=== PATIENT | female | born 1945 | race Caucasian/White ===

== ENCOUNTER 2018-02-25 06:43 | Emergency (ER) | payer MEDICARE, SELFPAY ==
[2018-02-25] VITALS (50 sets, daily range): BP systolic 126–157; BP diastolic 58–97; PULSE 54–68; RESP 11–20; TEMP 36.9; O2SAT 95–99
--- NOTE | 2018-02-25 06:53 | DI.CT_ITS ---
SYMPTOMS/DIAGNOSIS: RIGHT FRONTAL AND NASAL TRAUMA S/P FALL CT OF THE FACIAL BONES: A noncontrast enhanced examination was performed. There is a comminuted, mildly depressed fracture of the anterior portion of the right nasal bone and nasal septum. Also, there appears to be a nondisplaced fracture of the anterior nasal spine. The bony orbits are intact. No abnormality involving the intraorbital soft tissues or globes is seen. There is mild mucoperiosteal thickening involving the ethmoid sinus. The maxillary sinuses are clear. The sphenoid sinus is normal. There is no evidence of a mastoid effusion. SUMMARY: Nasal bone fractures are demonstrated as described above. C-SPINE CT: A noncontrast enhanced examination was carried out according to the usual protocol. There is no evidence of an acute fracture or subluxation. Degenerative changes are noted at C4-5 and C5-C6, where there is disc space narrowing, discogenic sclerosis and hypertrophic spurring. Also, there is disc- osteophyte complex prominence at these levels. There is no evidence of significant foraminal compromise. Degenerative changes involving the facet joints are also identified. The posterior elements appear intact. The neural canal at its narrowest point at the C4-5 level measures up to 12 mm in AP diameter. There are degenerative changes involving the articulation of C1 and C2 at the level of the odontoid. There is no evidence of a fracture. SUMMARY: No evidence of a fracture or subluxation. Degenerative changes as described above.
--- NOTE | 2018-02-25 06:53 | DI.RAD_ITS ---
SYMPTOMS/DIAGNOSIS: SYNCOPE, FALL PA AND LATERAL CHEST: The heart is normal in size. The lungs are clear. The mediastinal structures and pleura appear intact. SUMMARY: Normal chest. No evidence of acute cardiopulmonary disease.
--- NOTE | 2018-02-25 06:58 | W.ED.GENAD ---
Discharge Plan Disposition Patient Disposition: HOME Discharge Details Chief Complaint: HeadInjury Clinical Impression: Syncope, Leg cramp Reason For Visit: DAPHNE Primary Care Provider: Kerri Matson ED Provider: Catarino Reyes Home Meds and New Rx's Prescriptions: Continue metformin 500 MG tablet 500 mg PO BID RF: 0 aspirin [Aspir-81] 81 MG tablet,delayed release (DR/EC) 81 mg PO DAILY RF: 0 flaxseed oil 1,000 MG capsule 1,000 mg PO DAILY RF: 0 ursodiol 500 MG tablet 500 mg PO TID RF: 0 omega-3 fatty acids-fish oil [Fish Oil] 1 EACH capsule 1 ea PO DAILY RF: 0 cholecalciferol (vitamin D3) 1,000 UNIT tablet 1,000 unit PO BID RF: 0 ascorbic acid (vitamin C) [Vitamin C] 500 mg Tablet 500 mg PO DAILY RF: 0 fenofibrate 40 mg Tablet 40 mg PO DAILY RF: 0 Discharge Instructions Instructions: Syncope (ED) Additional Instructions: Please drink plenty of fluids to stay hydrated. Rest over the next few days. No exertional activities until cleared by your primary care physician. Keep zio patch monitor intact and return as directed by respiratory therapist. Please contact your primary care physician to arrange follow-up. Call today. Return to the ER for any worsening or new concerning symptoms. Referrals: Kerri Matsno [Primary Care Provider] - Discharge Data Discharge Date/Time-TO BE ENTERED AT DEPARTURE: 02/25/18 12:45 Medical Decision Making <Jv Matthew MD - Last Filed: 02/25/18 07:06> 72-year-old female diabetic presents from home following a fall that was a result of a painful leg cramps. She struck her right forehead and face and has resultant blunt trauma. She arrives to emergency department with stable vital signs, complaining of mild persistent leg cramping. Differential diagnosis includes dehydration, electrolyte abnormality, consideration of closed head injury or nasal fracture. Patient placed on teletypesetter monitor, referred for EKG, laboratory testing, chest x-ray, CT scan of the head and cervical spine. ECG Data Attestation: I personally reviewed and interpreted this ECG (s) as follows: Interpretation: Normal sinus rhythm, first-degree AV block, no ST segment elevation <Catarino Reyes MD - Last Filed: 03/05/18 22:12> 8:00 -- Cared signed out by Dr. Matthew with plan to follow on labs and CT imaging. ECG was reviewed and interpreted by me: Sinus rhythm 61 bpm with first-degree AV block with IA interval of 222. Labs reviewed and nondiagnostic. She does have some leuko-urea but specimen contaminated with epithelial cells. Patient notes no urinary symptoms. Will send urine culture but I suspect specimen is contaminated. We will not initiate antibiotics at this point. I instructed the patient to follow-up with her primary care physician regarding this should she develop any symptoms. Initial troponin is negative CT of the head interpreted by radiology: Negative CT cervical spine interpreted by radiology: Negative CT of the face interpreted by radiology: nasal fracture. I discussed these results with the patient. Patient reassessed and she has remained stable here in the emergency department. No arrhythmias. She received 1 L of crystalloid. I suspect this syncopal episode was a orthostatic process given she had been laying in bed stood and walked across the room and then experienced syncope. The cramp in her leg is completely resolved. She has no chest pain or shortness of breath. Plan at this time is to place a cardiac 0 patch monitor for expedited outpatient continuation of workup. I encouraged her to follow-up with her primary care physician I did call today to schedule an appointment. Advised her to return to the emergency department immediately should she have any worsening or new concerning symptoms. Patient in agreement with plan, feeling well and requesting discharge. Spoke with [employer] covering for PCP (Fercho) and I discussed case including presentation, ED course and diagnostic workup as well as treatment plan. She will help arrange for close outpatient follow-up. HPI <Jv Matthew MD - Last Filed: 02/25/18 07:06> General Mode of arrival: EMS. Date/Time Provider Initiated Documentation: 02/25/18 07:04. Limitations to Documentation: no limitations. Information obtained by: patient and EMS. History of Present Illness 72 year old F presents to the emergency department with the chief complaint of Fall, facial trauma, described as moderate, Quality is described as aching, and is localized to the head and face. Patient reports no radiation. Patient started experiencing this hour(s) and it has been constant. No relieving factors improve symptom(s), No exacerbating factors reported . Patient notes denies confusion and chest pain. HPI Narrative: Fall: 72-year-old female who has type 2 diabetes. She states she went to bed feeling normal. She was awoken by painful left thigh leg cramp. She got out of bed, was holding onto her dresser with intense pain and while trying to walk off the cramp fell to the ground and struck her head. She believes she had a brief loss of consciousness and had to lie on the ground for some minutes. EMS was called to the home. Patient had some bleeding from her nose which ceased by the time of arrival. She arrives to the emergency department improved, complaining of dull, achy, right frontal and nasal discomfort. She has had some ongoing left leg cramping. Morning she denies palpitations, chest pain, shortness of breath. Related Data Home Medications Medication Instructions Recorded Confirmed aspirin [Aspir-81] 81 mg PO DAILY tab-cap 09/14/13 02/25/18 flaxseed oil 1,000 mg PO DAILY 09/14/13 02/25/18 metformin 500 mg PO BID 09/14/13 02/25/18 omega-3 fatty acids-fish oil [Fish 1 ea PO DAILY 09/14/13 02/25/18 Oil] ursodiol 500 mg PO TID 09/14/13 02/25/18 cholecalciferol (vitamin D3) 1,000 unit PO BID 04/05/14 02/25/18 ascorbic acid (vitamin C) [Vitamin 500 mg PO DAILY 02/25/18 02/25/18 C] fenofibrate 40 mg PO DAILY 02/25/18 02/25/18 Allergies Allergy/AdvReac Type Severity Reaction Status Date / Time rosuvastatin calcium Allergy MUSCLE Unverified 02/25/18 09:04 [From Crestor] PAIN GI UPSET simvastatin Allergy HIVES Unverified 02/25/18 09:04 General Stated Complaint: Trauma GUERITA: 2 Review of Systems <Jv Matthew MD - Last Filed: 02/25/18 07:06> Review of Systems 8 systems reviewed and otherwise neg Exam <Jv Matthew MD - Last Filed: 02/25/18 07:06> Narrative Exam Narrative: GEN: awake, alert, oriented 3. Pleasant, well groomed, interactive. HEAD: Right frontal ecchymosis and swelling. Swelling of the nose. The nasal bridge is stable. No midface instability. Sensation of the face is normal. ENT: Mucous membranes moist, oropharynx unremarkable, External ear exam unremarkable EYES: PERRL, EOMI NECK: Full ROM, no TORI, no menigismus, no midline tenderness CHEST/RESP: Nontender, clear to auscultation bilateral, no wheeze/rhonchi/rales CARDIOVASCULAR: RRR, no murmur, rub karen. 2+ Rad pulse bilateral ABDOMEN: Soft, nontender, no mass. +Bowel sounds EXT: Full ROM, no edema, no rash Neuro: Grossly normal neurologic exam, conversant, interactive. Psych: Speech fluent, thoughts congruent, affect normal Course <Jv Matthew MD - Last Filed: 02/25/18 07:06> Vital Signs Temperature 36.9 C 02/25/18 06:45 Pulse 65 02/25/18 06:45 Respiratory Rate 18 02/25/18 06:45 Blood Pressure 157/97 H 02/25/18 06:45 Pulse Oximetry 97 02/25/18 06:45 Temperature 36.9 C 02/25/18 06:45 Temperature Source Temporal Artery Scan 02/25/18 06:45 Pulse 65 02/25/18 06:45 Respiratory Rate 18 02/25/18 06:45 Blood Pressure 157/97 H 02/25/18 06:45 Blood Pressure Position Sitting 02/25/18 06:45 Pulse Oximetry 97 02/25/18 06:45 Oxygen Delivery Method Room Air 02/25/18 06:45 Oxygen Flow Rate 0 02/25/18 06:45 Pain Level 2 02/25/18 06:45
[2018-02-25] MEDS: Normal Saline 1,000 ML 500 ML IV (07:11)
[2018-02-25 07:16] LABS: Abs Immature Grans 0.02 k/cumm (0.0-0.09); Absolute Basophil Count 0.05 k/cumm (0.0-0.2); Absolute Eosinophil Count 0.13 k/cumm (0.0-0.7); Absolute Lymphocyte Count 1.51 k/cumm (1.2-3.4); Absolute Monocyte Count 0.42 k/cumm (0.11-0.7); Absolute Neutrophil Count 2.55 k/cumm (1.2-6.7); Basophils % 1.1; Eosinophils % 2.8; HGB 13.2 g/dL (12.0-15.5); Immature Grans % 0.4; Lymphocytes % 32.3; Mean Corpuscular Hemoglobin 32.1 pg (27.0-33.0); Mean Corpuscular Volume 97.3 fL (80-95); Mean Platelet Volume 10.5 fL (8.0-11.0); Neutrophils % 54.4; Platelet Count 239 x1000/uL (130-400); RBC 4.11 m/cumm (4.00-5.20); RBC Distribution Width 13.1 % (11.7-14.6); White Blood Cell Count 4.68 k/cumm (4.4-10.8)
[2018-02-25 07:42] LABS: ALT 19 U/L (12-78); AST 22 U/L (15-37); Albumin 3.7 g/dL (3.4-5.0); Alkaline Phosphatase 66 U/L (46-116); Anion Gap 8.2 mmol/L (3-11); BUN 24 mg/dL (7-18); Bilirubin, Total 0.4 mg/dL (0.2-1.0); CO2 28.8 mmol/L (21.0-32.0); Calcium 9.4 mg/dL (8.5-10.1); Chloride 103 mmol/L (98-107); Glucose 156 mg/dL (70-100); Magnesium 2.1 mg/dL (1.8-2.4); Potassium 4.2 mmol/L (3.5-5.1); Sodium 140 mmol/L (136-145)
[2018-02-25 07:45] LABS: Troponin I < 0.02 ng/mL (0.00-0.06)
--- NOTE | 2018-02-25 08:44 | PDOC.ERCMPRO ---
Care Management Progress Note 02/25-Ariadna is a 72 year old female that fell this morning at home hitting her face. She states that her dog barked until he woke up her . Ariadna lives with her in [facility] in [place]. Robert, daughter Nano, and son in law Cresencio are here with patient. Ariadna is normally independent at home, no services, no assisted devices, still drives. Ariadna states she takes care of her Robert at home. Plan is for Ariadna to be discharged home today with no services. Nano and Elroy live in [facility], about 20 minutes from [place] and they state that they will be with Ariadna and Robert and help her at home. Dr. Reyes has taken over care of patient. Plan is to discharge patient home with no services, family support.
--- NOTE | 2018-02-25 08:48 | CMPROGNOTE_ITS ---
Care Management Progress Note 02/25-Ariadna is a 72 year old female that fell this morning at home hitting her face. She states that her dog barked until he woke up her . Ariadna lives with her in [facility] in [place]. Robert, daughter Nano , and son in law Cresencio are here with patient. Ariadna is normally independent at home, no services, no assisted devices, still drives. Ariadna states she takes care of her Robert at home. Plan is for Ariadna to be discharged home today with no services. Nano and Elroy live in [facility], about 20 minutes from [place] and they state that they will be with Ariadna and Robert and help her at home. Dr. Reyes has taken over care of patient. Plan is to discharge patient home with no services, family support.
[2018-02-25 10:46] LABS: Bilirubin Negative (Negative); Blood Negative (Negative); Clarity Clear; Glucose Negative (Negative); Ketones Negative (Negative); Leukocyte Esterase Large (Negative); Nitrite Negative (Negative); Specific Gravity 1.015 (1.005-1.025); Urobilinogen 0.2 EU/dL (Up TO 0.2)
[2018-02-25 10:57] LABS: Epithelial Cells Moderate HPF (Negative); RBC Negative (0-2); WBC 20-50 HPF (0-5)
[2018-02-25 10:58] LABS: Bacteria Moderate HPF (Negative); C & S Indicated? Yes; Casts Negative LPF (Negative); Crystals Negative HPF (Negative); Mucus Negative (Negative)
[2018-02-25 12:28] LABS: Troponin I < 0.02 ng/mL (0.00-0.06)
== END 2018-02-25 12:45 | disposition home or self-care (01) ==
PROVIDERS: Emergency Medicine; Emergency Provider Student in an Organized Health Care Education/Training Program; PCP Nurse Practitioner; Referring Provider Nurse Practitioner
DX: S02.2XXA Fracture of nasal bones, initial encounter for closed fracture (principal); R42 Dizziness and giddiness; R25.2 Cramp and spasm; W01.0XXA Fall on same level from slipping, tripping and stumbling without subsequent striking against object, initial encounter
CPT/HCPCS: 0298T; 36415; 80053; 93005; 93225; 96361; 96365; 96366; 99285; 70486; 71046; 72125; 81003; 81015; 83735; 84484; 85025; 87086; 93010; J3475

== ENCOUNTER 2018-03-02 12:55 | Outpatient (REF) | payer MEDICARE, SELFPAY ==
--- NOTE | 2018-03-16 18:45 | ZIOP_ITS ---
ZIO PATCH REPORT DATE OF READING: March 16, 2018 STUDY INDICATION: Syncope. REQUESTING PROVIDER: Kerri Matson N.P. FINDINGS: The patient was monitored for 13 days and 20 hours. The predominant underlying rhythm was sinus rhythm. Average heart rate in sinus rhythm 65 beats per minute, range 45-110 beats per minute. There was rare ectopy. There were 36 atrial runs, average heart rate 112 beats per minute, range 63-176 beats per minute. T he longest episode lasted 11 beats with an average heart rate of 96 beats per minute. There was a single 6-beat ventricular run with an average heart rate of 130 beats per minute. There were no pauses greater than 3 seconds. There was no high-degree heart block. There were no patient events. FINAL INTERPRETATION: Bursts of atrial tachycardia, asymptomatic.
== END 2018-03-02 13:15 ==
LOC: NCHCN 12:55
PROVIDERS: PCP Nurse Practitioner; Visit Provider Nurse Practitioner
DX: N39.0 Urinary tract infection, site not specified (principal)
CPT/HCPCS: 87077; 87086; 87186

== ENCOUNTER 2018-03-16 16:21 | Outpatient (CLI) | payer MEDICARE, SELFPAY | END 2018-03-16 16:41 | PROVIDERS: PCP Nurse Practitioner; Referring Provider Student in an Organized Health Care Education/Training Program; Visit Provider Student in an Organized Health Care Education/Training Program | DX: R55 Syncope and collapse (principal); I47.1 Supraventricular tachycardia | CPT/HCPCS: 0298T ==

== ENCOUNTER 2018-04-01 01:27 | Outpatient (CLI) | payer MEDICARE, SELFPAY ==
--- NOTE | 2018-04-01 08:17 | DI.US_ITS ---
SYMPTOM/DIAGNOSIS: H/O PBC, EVAL STRUCTURE - LIVER, K74.3 ULTRASOUND ABDOMEN: There are no prior comparison exams. The liver is normal in size and overall echogenicity, however there is heterogeneous echo texture. There is some increased echogenicity of the portal triads. There is thickening of the wall of the common bile duct and the lumen is poorly visualized. No focal liver mass is identified. The gallbladder has a normal appearance. The kidneys, spleen and aorta are unremarkable. There is no evidence of ascites. IMPRESSION: Heterogeneous liver echo texture. Echogenic portal triads and significant thickening of the wall of the common bile duct may be seen with primary biliary cholangitis.
== END 2018-04-01 01:47 ==
PROVIDERS: PCP Nurse Practitioner; Visit Provider Hospitalist
DX: K74.3 Primary biliary cirrhosis (principal); K82.8 Other specified diseases of gallbladder
CPT/HCPCS: 76700

== ENCOUNTER 2018-11-22 10:43 | Outpatient (REF) | payer MEDICARE, SELFPAY ==
[2018-11-22 15:57] LABS: COMMENT (LAB VIEW ONLY) 33.57 mg/dL; Microalb ug/mg Crea 8.3 ug/mg Cr
== END 2018-11-22 11:03 ==
LOC: NCHCN 10:43
PROVIDERS: PCP Nurse Practitioner; Visit Provider Nurse Practitioner
DX: E11.9 Type 2 diabetes mellitus without complications (principal)
CPT/HCPCS: 82043; 82570

== ENCOUNTER 2019-07-06 02:42 | Outpatient (CLI) | payer MEDICARE, SELFPAY ==
--- NOTE | 2019-07-06 15:23 | DI.MAMMO_ITS ---
EXAM: MAMMO SCREENING CLINICAL HISTORY: SCREENING, Z12.39 TECHNIQUE: Mammograms were interpreted according to the usual protocol including computer analysis w [employer] CAD system, tomosynthesis and C-view imaging. COMPARISON: 2012 through 2014 FINDINGS: The breasts are composed of mainly fatty density , Breast Density category A. No suspicious masses or suspicious microcalcifications are seen. Vascular calcifications are inciden tally noted. No skin thickening or abnormal axillary lymph nodes are seen. There has been no significant change from prior exams. IMPRESSION: Bi rads category 1, negative. Yearly screening mammography is recommended. Breast density category A, fatty density.
== END 2019-07-06 03:02 ==
PROVIDERS: PCP Nurse Practitioner; Visit Provider Nurse Practitioner
DX: Z12.31 Encounter for screening mammogram for malignant neoplasm of breast (principal)
CPT/HCPCS: 77063; 77067

== ENCOUNTER 2020-01-17 02:17 | Outpatient (CLI) | payer MEDICARE, SELFPAY ==
[2020-01-18 14:26] LABS: COVID-19 RT-PCR Result NEGATIVE (Negative)
== END 2020-01-17 02:37 ==
PROVIDERS: PCP Nurse Practitioner; Visit Provider Surgery
DX: Z11.59 Encounter for screening for other viral diseases (principal); Z01.818 Encounter for other preprocedural examination
CPT/HCPCS: U0003

== ENCOUNTER 2020-06-25 11:22 | Outpatient (REF) | payer MEDICARE, SELFPAY ==
[2020-06-25 16:20] LABS: ALT 22 U/L (14-59); AST 19 U/L (15-37); Albumin 3.9 g/dL (3.4-5.0); Alkaline Phosphatase 62 U/L (46-116); Anion Gap 6.9 mmol/L (3-11); BUN 20 mg/dL (7-18); Bilirubin, Total 0.4 mg/dL (0.2-1.0); CO2 25.1 mmol/L (21.0-32.0); CREATININE 1.1 mg/dL (0.55-1.02); Calcium 9.8 mg/dL (8.5-10.1); Calculated LDL 107 mg/dL (<100); Chloride 106 mmol/L (98-107); Cholesterol 184 mg/dL (<200); Estimated GFR 48.42 (mL/min/1.73m2); Glucose 146 mg/dL (74-106); HDL Cholesterol 48 mg/dL (40-60); Hemoglobin A1C 7.9 % (<5.7); Potassium 4.5 mmol/L (3.5-5.1); Sodium 138 mmol/L (136-145); Total Protein 6.9 g/dL (6.4-8.2); Triglyceride 146 mg/dL (<150)
[2020-06-25 16:47] LABS: Microalb ug/mg Crea 4.3 ug/mg Cr
== END 2020-06-25 11:23 | disposition home or self-care (01) ==
LOC: NCHCN 11:22
PROVIDERS: PCP Nurse Practitioner; Visit Provider Nurse Practitioner
DX: E11.9 Type 2 diabetes mellitus without complications (principal); E78.5 Hyperlipidemia, unspecified
CPT/HCPCS: 80053; 80061; 82043; 82570; 83036

== ENCOUNTER 2021-06-24 13:46 | Outpatient (REF) | payer MEDICARE, SELFPAY ==
--- OUTSIDE RECORDS SUMMARY | 2021-06-24 13:51 | XMS_ITS ---
:1945 Author Care Team Providers Name Role Phone DR. MEREDITH SILVER Primary Care Provider [phone] DR. MEREDITH SILVER Referring Provider [phone] Allergies Code Code System Name Reaction Severity Status Onset 007189 RxNorm Crestor ? ? Active ? 59787 RxNorm Simvastatin ? ? Active ? Medications Name Status Start Date Stop Date ? ? Aspir-81 mg tablet,delayed release Active ? Not available Take 1 tablet every day by oral route. Blood Glucose Test strips Active ? Not av ailable FREESTYLE TEST IN VITRO STRIP TEST ONCE DAILY cefpodoxime 100 mg tablet Active ? Not av ailable Take 1 tablet twice a day by oral route. Diabetes Lancets Active ? Not available Freestyle 28G Lancets-test daily fenofibrate 160 mg tablet Active ? Not av ailable Take 1 tablet every day by oral route. Fish Oil Active ? Not available 1200mg BID flaxseed oil Active ? Not available 1200 mg BID metformin 500 mg tablet Active ? Not avai lable Take 1 tablet every day by oral route. timolol 0.5 % eye drops Active ? Not avai lable INSTILL 1 DROP INTO AFFECTED EYE(S) BY OPHTHALMIC ROUTE 2 TIMES PER DAY ursodiol 500 mg tablet Active ? Not avail able Take 1 tablet 3 times a day by oral route. Vitamin D Active ? Not available 1000 1 daily Notes: Vit C 1000 mg once a day by mouth Problems Name Status Onset Date Source ? 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 Diabetes Mellitus Active 06/09/2019 ? Hyperlipidemia Active 06/09/2019 ? 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 Osteopenia Active 06/09/2019 ? Screening for Malignant Neoplasm of Breast Active 06/09 ? Procedures Date Name Performed by ? ? Colonoscopy Information not avai lable Notes: 2013 Notes: tubal ligation - 1970 Results Lab Results Date Name Specimen Result Interpretation Description Value Range Status Address ? 01/25/2020 Hepatic P Normal Alt 21 14-59 Final [place] Function U/L U/L [facility] Panel, Serum Labo ratory & Pathology: [address] [place] [address] ? ? P Normal Ast 23 15-37 Final [place] U/L U/L [facility] Laboratory & Pathology: [address] [place] [address] ? ? P Normal Alkp 50 50-130 [facility] Laboratory & Pathology: [address] [place] [address] ? ? P Normal Tbil 0.5 <=1.2 [facility]/dL [facility] Laboratory & Pathology: [address] [place] [address] ? ? P Normal Dbil 0.17 0.00-0. [facility] mg/dL Laboratory & Pathology: [address] [place] [address] ? ? P Normal Tp 7.6 6.4-8.2 [facility] g/dL [facility] Laboratory & Pathology: [address] [place] [address] ? ? P Normal Alb 4.1 3.4-5.0 [facility] g/dL [facility] Laboratory & Pathology: [address] [place] [address] ? ? P ? Glob 3.50 ? Final [place] mg/dL [facility] Laboratory & Pathology: [address] [place] [address] 01/17/2020 SARS CoV 2 ? No ? ? ? No [facility] RNA observation [facility] (COVID-19), recorded. [place] [facility], client solutions specialist-PCR, Hosp ital: [address] [facility] [place], Specimen [place] Past Encounters None recorded. Social History Tobacco Smoking Status Never Smoker Vaccine List Vaccine Type Hep A, adult 05/26/2008 06/12/2009 10/03/2009 Hep B, adult 05/26/2008 06/12/2009 10/03/2009 pneumococcal polysaccharide PPV23 10/03/2009 Td (adult) 10/03/2009 zoster, unspecified formulation 08/19/2007 Plan of Care Reminders Provider Appointments None ? ? recorded. Lab None ? ? recorded. Referral None ? ? recorded. Procedures None ? ? recorded. Surgeries None ? ? recorded. Imaging None ? ? recorded. Vitals Height Weight BMI Blood Pressure 160.02 cm 81.19 kg 31.7 kg/m2 128/84 mm[Hg]
[2021-06-24 20:24] LABS: ALT 22 U/L (14-59); AST 20 U/L (15-37); Alkaline Phosphatase 51 U/L (46-116); Anion Gap 8.2 mmol/L (3-11); BUN 18 mg/dL (7-18); Bilirubin, Total 0.4 mg/dL (0.2-1.0); CO2 27.8 mmol/L (21.0-32.0); CREATININE 1.2 mg/dL (0.55-1.02); Calcium 9.9 mg/dL (8.5-10.1); Calculated LDL 113 mg/dL (<100); Chloride 101 mmol/L (98-107); Cholesterol 197 mg/dL (<200); Estimated GFR 43.68 (mL/min/1.73m2); Glucose 133 mg/dL (74-106); HDL Cholesterol 58 mg/dL (40-60); Potassium 4.3 mmol/L (3.5-5.1); Sodium 137 mmol/L (136-145); Total Protein 6.8 g/dL (6.4-8.2); Triglyceride 134 mg/dL (<150)
== END 2021-06-24 13:47 | disposition home or self-care (01) ==
LOC: NCHCN 13:46
PROVIDERS: PCP Nurse Practitioner; Visit Provider Nurse Practitioner Family
DX: E11.9 Type 2 diabetes mellitus without complications (principal)
CPT/HCPCS: 80053; 80061

== ENCOUNTER → 2021-09-27 00:49 | Outpatient (CLI) | payer MEDICARE, SELFPAY ==
--- NOTE | 2021-09-27 | DI.DEXA_ITS ---
Exam(s) XR DEXA BONE DENSITY W/WO HUMPHREY EXAM: XR DEXA BONE DENSITY W/WO HUMPHREY CLINICAL HISTORY: DISORDER OF BONE DENSITY M85.88, SCREENING FOR OSTEOPOROSIS TECHNIQUE: COMPARISON: DX DEXA BONE DENSITY WITH HUMPHREY from 01/20/2017 FINDINGS: Lateral Spine Image: There has been further compression of what appears to be the T12 vertebral body. There also now appears to be mild compression of L2 and L4. Left hip: Total T-Score: -2.5. This compares to -2.3 on the prior examination. This is a decrease in the bone mineral density. Total Z-Score: -0.6 T- and Z-scores: Findings are consistent with osteoporosis. Lumbar Spine: Total T-Score: -1.9. This compares to -2.4 on the prior examination. This does show an increase in t he bone mineral density. Total Z-Score: 0.6 T- and Z-scores: Findings are consistent with osteopenia. IMPRESSION: Osteoporosis in the left hip.
--- OUTSIDE RECORDS SUMMARY | 2021-09-27 00:51 | XMS_ITS ---
:1945 Author Care Team Providers Name Role Phone DR. MEREDITH SILVER Primary Care Provider [phone] DR. MEREDITH SILVER Referring Provider [phone] Allergies Code Code System Name Reaction Severity Status Onset 153960 RxNorm Crestor ? ? Active ? 53433 RxNorm Simvastatin ? ? Active ? Medications [...] C 1000 mg once a day by spike th Problems Name Status Onset Date Source ? [...] Hepatic P Normal Alt 21 14-59 [facility] Panel, Serum Labo ratory & Pathology: [address] [place] [address] ? ? P Normal Ast 23 15-37 [place] U/L U/L [facility] Laboratory & Pathology: [address] [place] [address] ? ? P Normal Alkp 50 50-130 [facility] Laboratory & Pathology: [address] [place] [address] ? ? P Normal Tbil 0.5 <=1.2 [facility] mg/dL [facility] Laboratory & Pathology: [address] [place] [address] ? ? P Normal Dbil 0.17 0.00-0. Final [facility] mg/dL Laboratory & Pathology: [address] [place] [address] ? ? P Normal Tp 7.6 6.4-8.2 [facility] g/dL [facility] Laboratory & Pathology: [address] [place] [address] ? ? P Normal Alb 4.1 3.4-5.0 [facility] g/dL [facility] Laboratory & Pathology: [address] [place] [address] ? ? P ? Glob 3.50 ? Final [place] mg/dL [facility] Laboratory & Pathology: [address] [place] [address] 01/17/2020 SARS CoV 2 RNA ? No ? ? ? 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, exterior door installer-PCR, recorded. [facility]: [address] [facility] [place] Past Encounters None recorded. Social History Tobacco Smoking Status Never Smoker Vaccine List Vaccine Type Hep A, adult 05/26/2008 06/12/2009 10/03/2009 Hep B, adult 05/26/2008 06/12/2009 10/03/2009 pneumococcal polysaccharide PPV23 10/03/2009 Td (adult) 10/03/2009 zoster, unspecified formulation 08/19/2007 Plan of Care Reminders Provider Appointments None recorded. ? ? Lab None recorded. ? ? Referral None recorded. ? ? Procedures None recorded. ? ? Surgeries None recorded. ? ? Imaging None recorded. ? ? Vitals Height Weight BMI Blood Pressure 160.02 cm 81.19 kg 31.7 kg/m2 128/84 mm[Hg]
== END ==
PROVIDERS: PCP Nurse Practitioner; Visit Provider Nurse Practitioner Family
DX: M81.0 Age-related osteoporosis without current pathological fracture (principal); M85.88 Other specified disorders of bone density and structure, other site
CPT/HCPCS: 77080

== ENCOUNTER 2022-04-07 15:17 | Outpatient (REF) | payer MEDICARE, SELFPAY ==
[2022-04-07 15:08] LABS: Anion Gap 6.4 mmol/L (3-11); BUN 24 mg/dL (7-18); CO2 28.6 mmol/L (21.0-32.0); CREATININE 1.2 mg/dL (0.55-1.02); Calcium 9.8 mg/dL (8.5-10.1); Chloride 103 mmol/L (98-107); Estimated GFR 46.91 (mL/min/1.73m2); Glucose 138 mg/dL (74-106); Potassium 5.1 mmol/L (3.5-5.1); Sodium 138 mmol/L (136-145)
[2022-04-07 16:05] LABS: Hemoglobin A1C 7.2 % (<5.7)
== END 2022-04-07 15:18 | disposition home or self-care (01) ==
LOC: NCHCN 15:17
PROVIDERS: PCP Nurse Practitioner; Visit Provider Nurse Practitioner Family
DX: E11.9 Type 2 diabetes mellitus without complications (principal); I10 Essential (primary) hypertension; Z00.00 Encounter for general adult medical examination without abnormal findings
CPT/HCPCS: 80048; 83036

== ENCOUNTER 2022-07-21 16:09 | Outpatient (REF) | payer MEDICARE, SELFPAY ==
[2022-07-21 20:17] LABS: Abs Immature Grans 0.02 10^3/uL (0.0-0.06); Absolute Basophil Count 0.07 10^3/uL (0.0-0.2); Absolute Eosinophil Count 0.17 10^3/uL (0.0-0.7); Absolute Lymphocyte Count 1.76 10^3/uL (1.2-3.4); Absolute Monocyte Count 0.54 10^3/uL (0.1-0.8); Absolute Neutrophil Count 4.19 10^3/uL (1.2-6.7); Eosinophils % 2.5; HCT 35.6 % (36.0-46.0); HGB 11.8 g/dL (11.2-15.7); Immature Grans % 0.3; Lymphocytes % 26.1; MCH 35.3 pg (27.0-33.0); MCHC 33.1 % (32.0-36.0); MCV 107 fL (80-95); MPV 10.8 fL (8.0-11.0); Neutrophils % 62.1; Platelet Count 306 10^3/uL (130-400); RBC 3.34 10^6/uL (3.93-5.22); RDW-SD 55.5 fL; WBC 6.75 10^3/uL (4.4-10.8)
[2022-07-21 20:27] LABS: ALT 18 U/L (14-59); AST 14 U/L (15-37); Albumin 3.8 g/dL (3.4-5.0); Alkaline Phosphatase 51 U/L (46-116); Anion Gap 5.9 mmol/L (3-11); BUN 26 mg/dL (7-18); Bilirubin, Total 0.2 mg/dL (0.2-1.0); CO2 27.1 mmol/L (21.0-32.0); CREATININE 1.5 mg/dL (0.55-1.02); Calcium 9.5 mg/dL (8.5-10.1); Calculated LDL 107 mg/dL (<100); Chloride 105 mmol/L (98-107); Cholesterol 178 mg/dL (<200); Estimated GFR 35.67 (mL/min/1.73m2); Glucose 143 mg/dL (74-106); HDL Cholesterol 54 mg/dL (40-60); Potassium 4.8 mmol/L (3.5-5.1); Sodium 138 mmol/L (136-145); Total Protein 6.5 g/dL (6.4-8.2); Triglyceride 85 mg/dL (<150)
[2022-07-21 20:38] LABS: COMMENT (LAB VIEW ONLY) 83.27 mg/dL; Microalb ug/mg Crea 23.9 ug/mg Cr
[2022-07-21 20:52] LABS: Vitamin D 25 Total 80.9 ng/mL (30-100)
[2022-07-21 20:53] LABS: Hemoglobin A1C 7.5 % (<5.7)
[2022-07-21 20:59] LABS: Diff Comment RBC Morph Reviewed; Macrocytosis 1+
[2022-07-22 18:41] LABS: Parathyroid Hormone,Intact 13 pg/mL (19-88)
== END 2022-07-21 16:10 | disposition home or self-care (01) ==
LOC: NCHCN 16:09
PROVIDERS: PCP Nurse Practitioner; Visit Provider Nurse Practitioner Family
DX: E11.9 Type 2 diabetes mellitus without complications (principal); N18.30 Chronic kidney disease, stage 3 unspecified; E78.5 Hyperlipidemia, unspecified; M85.88 Other specified disorders of bone density and structure, other site
CPT/HCPCS: 80053; 80061; 82306; 82043; 82570; 83036; 83970; 85025

== ENCOUNTER 2023-10-14 16:51 | Outpatient (REF) | payer MEDICARE, SELFPAY ==
[2023-10-14 19:29] LABS: HCT 34.3 % (36.0-46.0); HGB 11.3 g/dL (11.2-15.7); MCH 36.5 pg (27.0-33.0); MCHC 32.9 % (32.0-36.0); MCV 111 fL (80-95); MPV 9.9 fL (8.0-11.0); Platelet Count 373 10^3/uL (130-400); RDW-SD 53.1 fL; WBC 6.44 10^3/uL (4.4-10.8)
[2023-10-14 19:34] LABS: Anion Gap 8.7 mmol/L (3-11); BUN 17 mg/dL (7-18); CO2 27.3 mmol/L (21.0-32.0); CREATININE 1.3 mg/dL (0.55-1.02); Calcium 9.9 mg/dL (8.5-10.1); Chloride 102 mmol/L (98-107); Estimated GFR 42.09 (mL/min/1.73m2); Glucose 128 mg/dL (74-106); Potassium 4.7 mmol/L (3.5-5.1); Sodium 138 mmol/L (136-145)
== END 2023-10-14 16:52 | disposition home or self-care (01) ==
LOC: NCHCN 16:51
PROVIDERS: Visit Provider Nurse Practitioner Family
DX: N18.30 Chronic kidney disease, stage 3 unspecified (principal)
CPT/HCPCS: 80048; 85027